=== PATIENT | female | born 1995 | race Hispanic/Latino ===

== ENCOUNTER 2021-05-31 12:28 | Inpatient (IN) | payer OTHER, SELFPAY ==
[2021-05-31] MEDS ORDERED: HYDROcodone/Acetaminophen 5/325 mg Tablet PO PRN ×3 (12:29→19:50)
[2021-05-31] MEDS ORDERED: Ibuprofen 800 MG TAB PO PRN (12:29)
[2021-05-31] MEDS ORDERED: Butorphanol Tartrate 1 MG/ML VIAL SLOW IVP PRN (12:29)
[2021-05-31] MEDS ORDERED: Misoprostol 200 MCG TAB PR PRN (12:29)
[2021-05-31] MEDS ORDERED: Methylergonovine 0.2 MG/ML VIAL IM PRN (12:29)
[2021-05-31] MEDS ORDERED: hydrALAZINE 20 MG/ML VIAL SLOW IVP PRN ×2 (12:29→19:50)
[2021-05-31] MEDS ORDERED: Lidocaine 1% (PF) 30 ML VIAL SC PRN (12:29)
[2021-05-31] MEDS ORDERED: Carboprost 250 MCG/ML AMP IM PRN (12:29)
[2021-05-31] MEDS ORDERED: Promethazine HCl 25 MG/ML VIAL IM PRN ×2 (12:29→19:50)
[2021-05-31] MEDS ORDERED: Ondansetron PF 4 MG/2 ML Vial IVP PRN ×2 (12:29→19:50)
[2021-05-31] MEDS ORDERED: Acetaminophen 500 MG TAB PO PRN (12:29)
[2021-05-31] MEDS ORDERED: Diphenoxylate HCl/Atropine Tablet PO PRN (12:29)
[2021-05-31] MEDS ORDERED: NS w/ Oxytocin 30 units 500 ML IVPB SCH (12:30)
[2021-05-31] MEDS ORDERED: Lactated Ringer's 1,000 ML IV SCH (12:30)
[2021-05-31] MEDS ORDERED: NS w/ Oxytocin 30 units 500 ML IV SCH ×3 (12:30→19:50)
[2021-05-31 14:43] LABS: Hemoglobin 11.9 g/dL (12.0-15.5); Mean Corpuscular HGB CONC 33.1 g/dL (32.0-36.0); Mean Corpuscular Volume 87.6 fl (81.6-98.3); Platelet Count 276 10x3/uL (150-450); RBC Distribution Width 13.7 % (11.5-14.5); White Blood Cell (WBC) Count 10.8 10x3/uL (3.5-10.5)
[2021-05-31 15:24] LABS: Hep B Surf Ag Non-Reactive S/CO (NonReactive); Syphilis Antibody Nonreactive (Nonreactive); Syphilis Antibody Index 0.04 S/CO (<1.00 Non-Reactive)
[2021-05-31 15:32] LABS: HBSAg Index 0.17 S/CO (0-0.99)
[2021-05-31 16:01] LABS: SARS-CoV-2 NAA Rapid Test Not Detected (NotDetected)
[2021-05-31 18:47] VITALS: BMI 23.0
[2021-05-31] MEDS ORDERED: Bisacodyl 10 MG SUPP PR PRN (19:50)
[2021-05-31] MEDS ORDERED: Lanolin Ointment 7 GM TUBE TOP PRN (19:50)
[2021-05-31] MEDS ORDERED: Milk Of Magnesia 30 ML UDCUP PO PRN (19:50)
[2021-05-31] MEDS ORDERED: diphenhydrAMINE 25 MG CAP PO PRN (19:50)
[2021-05-31] MEDS: Docusate Calcium (SURFAK) 240 MG CAP PO SCH (21:54)
[2021-05-31] MEDS: Ibuprofen 800 MG TAB PO SCH (22:14)
[2021-06-01] MEDS: Ibuprofen 800 MG TAB PO SCH ×2 (05:52→13:44)
[2021-06-01] MEDS: Ferrous Sulfate 325 MG TAB PO SCH ×2 (08:09→17:53)
[2021-06-01] MEDS: Docusate Calcium (SURFAK) 240 MG CAP PO SCH (08:36)
[2021-06-01] MEDS ORDERED: Prenatal Vitamin 1 TAB PO SCH (09:00)
[2021-06-01 17:37] VITALS: BP 125/60; TEMP 98.3
[2021-06-01] MEDS ORDERED: Boostrix 0.5 ML (Tdap) VIAL IM ONE (19:50)
== END 2021-06-01 19:55 | disposition home or self-care (01) | DRG 807 ==
LOC: CSHLD 12:28 → CSHPP 20:35
PROVIDERS: ADMIT Family Medicine; ATTEND Family Medicine
PROC: 10E0XZZ Delivery of Products of Conception, External Approach (ICD-10-PCS; principal; 2021-05-31)
PROC: 10907ZC Drainage of Amniotic Fluid, Therapeutic from Products of Conception, Via Natural or Artificial Opening (ICD-10-PCS; 2021-05-31)
DX: O77.0 Labor and delivery complicated by meconium in amniotic fluid (principal); Z37.0 Single live birth; Z3A.40 40 weeks gestation of pregnancy; Z20.822 Contact with and (suspected) exposure to COVID-19; O69.81X0 Labor and delivery complicated by cord around neck, without compression, not applicable or unspecified
CPT/HCPCS: 36415; 85027; 86780; 86850; 86900; 86901; 87340; J2590; U0002